=== PATIENT | male | born 2000 | race Caucasian/White ===

== ENCOUNTER 2025-03-30 16:37 | Emergency (ER) | payer OTHER ==
[~2025-03-30] VITALS: Ht 175.3 cm; Wt 77.1 kg
[2025-03-30] MEDS ORDERED: EPINEPHRIN0.3 MG/0.1 IM (19:07)
== END 2025-03-30 20:18 | disposition home or self-care (01) ==
LOC: ER 16:37
DX: T63.441A Toxic effect of venom of bees, accidental (unintentional), initial encounter (principal); L50.9 Urticaria, unspecified; X58.XXXA Exposure to other specified factors, initial encounter
CPT/HCPCS: 96372; 99283-25; A9270; J2919